=== PATIENT | male | born 1950 | race Caucasian/White ===

== ENCOUNTER 2018-02-13 16:50 | Emergency (ER) | payer MEDICARE, OTHER ==
[2018-02-13 17:09] VITALS: BP 128/81; O2SAT 94
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
[2018-02-13 19:51] VITALS: PULSE 78
--- NOTE | 2018-02-14 09:43 | XRAY ---
Indication: Cough. Comparison: None Portable chest demonstrates minimal left base fibrosis/scarring, left costophrenic angle pleural thickening/effusion, and left mid lung calcified granuloma. Remaining heart, lungs, and bony thorax unremarkable.
== END 2018-02-13 19:51 ==
LOC: ED 16:50
DX: J40 Bronchitis, not specified as acute or chronic (principal); R55 Syncope and collapse; Z79.899 Other long term (current) drug therapy; E11.9 Type 2 diabetes mellitus without complications; Z79.4 Long term (current) use of insulin; I10 Essential (primary) hypertension
CPT/HCPCS: 71045; 82962; 93005; 99284

== ENCOUNTER 2022-09-18 20:11 | Emergency (ER) | payer MEDICARE, OTHER ==
[2022-09-18 20:13] VITALS: TEMP 98.3; O2SAT 95
[2022-09-18] MEDS ORDERED: TORAdol 30 mg Injection IV ONE (20:50)
[2022-09-18] MEDS ORDERED: TORAdol 30 mg Injection ONE (20:53)
[2022-09-18 21:22] VITALS: BP 147/85; PULSE 67; RESP 16
--- NOTE | 2022-09-18 22:04 | ERPHSYRPT ---
- History of Present Illness Time Seen by Provider: 09/18/22 20:30 Source: patient Exam Limitations: no limitations Patient Subjective Stated Complaint: rt back pain x1 week, the pain got aggravated tonight when I tried to sit up on a high stool at [employer]. Triage Nursing Assessment: pt brought into ER via ambulance. Pt c/o rt lower back pain x1 week. Pt also has shooting pain that goes into rt upper buttock region. Pain was triggered tonight when he tried to get up on a high stool at [employer] for dinner. Physician History: Patient is a 72-year-old male with a history of chronic back pain, back surgery presents to our ED with acute on chronic back pain. Patient was sitting at a restaurant. Patient was on the tall barstool. Patient adjusted himself and in the process experience a severe pain just right to his sacrum. No trauma. No fever. No recent back procedure. No saddle anesthesia. No change in bowel bladder function. No lower extremity numbness tingling or weakness. Pain is localized but occasionally feels a shooting sensation into the mid buttock area. Patient denies any recent back procedures. No associated chest pain or shortness of breath. No nausea vomiting or diaphoresis. at bedside. They voiced no other complaints or concerns at this time. Portions of this note were created with voice recognition technology. There may be grammatical, spelling, punctuation or sound alike errors Timing/Duration: today Method of Injury: other (Sitting and twisting) Quality: dull, radiating (Occasionally radiates into his right buttock) Back Pain Location: lumbar spine Back Pain Radiation: buttocks Severity of Pain-Max: moderate Severity of Pain-Current: mild Modifying Factors: Improves With: movement (Movement and palpation reproduce pain.) Associated Symptoms: denies symptoms Previous symptoms: same symptoms as today Allergies/Adverse Reactions: No Known Drug Allergies Allergy (Verified 09/18/22 20:22) Home Medications: Gabapentin 300 mg TID 02/13/18 [History] Insulin Glargine,Hum.rec.anlog [Basaglar Kwikpen U-100] 20 mg BID 02/13/18 [History] Pravastatin Sodium 40 mg DAILY 02/13/18 [History] atenoloL [Atenolol] 100 mg DAILY 02/13/18 [History] glipiZIDE [Glipizide] 5 mg BID 02/13/18 [History] lisinopriL [Lisinopril] 5 mg PO DAILY 02/13/18 [History] Aspirin 81 mg PO DAILY 09/18/22 [History] Diclofenac Sodium 50 mg [Voltaren 50 mg] 1 tab PO BID 09/18/22 [History] Omeprazole 40 mg PO DAILY 09/18/22 [History] Sildenafil Citrate 100 mg PO DAILY PRN PRN 09/18/22 [History] Hx Tetanus, Diphtheria Vaccination/Date Given: Yes Hx Influenza Vaccination/Date Given: Yes Hx Pneumococcal Vaccination/Date Given: Yes Immunizations Up to Date: Yes Travel Risk - International Travel Have you traveled outside of the country in past 3 weeks: No - Coronavirus Screening Are you exhibiting any of the following symptoms?: No Close contact with a COVID-19 positive Pt in past 14-21 Days: No - Vaccine Status Have you recieved a Covid-19 vaccination: Yes Broadcast Checker: Unknown - Vaccination Dates Date of 2cond Vaccination (if applicable): . Dates if Unknown: . - Review of Systems Constitutional: No Symptoms, No Fever, No Chills Eyes: No Symptoms Ears, Nose, & Throat: No Symptoms Respiratory: No Symptoms, No Cough, No Dyspnea Cardiac: No Symptoms, No Chest Pain, No Edema, No Syncope Abdominal/Gastrointestinal: No Symptoms, No Abdominal Pain, No Nausea, No Vomiting, No Diarrhea Genitourinary Symptoms: No Symptoms, No Dysuria Musculoskeletal: No Symptoms, No Back Pain, No Neck Pain Skin: No Symptoms, No Rash Neurological: No Symptoms, No Dizziness, No Focal Weakness, No Sensory Changes Psychological: No Symptoms Endocrine: No Symptoms Hematologic/Lymphatic: No Symptoms Immunological/Allergic: No Symptoms All Other Systems: Reviewed and Negative - Past Medical History Pertinent Past Medical History: Yes Neurological History: No Pertinent History ENT History: No Pertinent History Cardiac History: High Cholesterol, Hypertension, Other Respiratory History: Bronchitis Endocrine Medical History: Diabetes Type II Musculoskeletal History: Degenerative Disk Disease, Fractures GI Medical History: Diverticulitis, GERD, Gallbladder Disease, Hernia Psycho-Social History: No Pertinent History Other Medical History: sinus infection 2018. heart murmur - Past Surgical History Past Surgical History: Yes Gastrointestinal: Cholecystectomy, Colon Resection, Hernia Repair Male Surgical History: Prostate Surgery Other Surgical History: carpal tunnel - Social History Smoking Status: Never smoker Exposure to second hand smoke: No Drug Use: none Patient Lives Alone: No - Nursing Vital Signs Nursing Vital Signs: Initial Vital Signs Temperature 98.3 F 09/18/22 20:12 Pulse Rate 69 09/18/22 20:12 Respiratory Rate 20 09/18/22 20:12 Blood Pressure 144/75 09/18/22 20:12 O2 Sat by Pulse Oximetry 95 09/18/22 20:12 Pain Scale Pain Intensity [Right Back] 4 Pain Intensity 0 - Physical Exam General Appearance: no apparent distress, alert Eye Exam: PERRL/EOMI, eyes nml inspection Ears, Nose, Throat Exam: normal ENT inspection Neck Exam: normal inspection, non-tender, supple, full range of motion, No meningismus, No midline tenderness Respiratory Exam: normal breath sounds, lungs clear, airway intact, No respiratory distress Cardiovascular Exam: regular rate/rhythm, normal heart sounds, normal peripheral pulses Gastrointestinal Exam: soft, other (No pulsatile abdominal masses.), No tenderness, No mass Extremity Exam: normal inspection, normal range of motion, other (Pain adjacent to right SI joint), No calf tenderness, No pedal edema Neurologic Exam: alert, oriented x 3, cooperative, material requirements planning manager II-XII nml as tested, normal mood/affect, nml station & gait, sensation nml, No motor deficits Skin Exam: normal color, warm, dry, No rash Lymphatic Exam: No adenopathy SpO2 Interpretation: normal SpO2: 95 O2 Delivery: Room Air - Course Nursing assessment & vital signs reviewed: Yes - CT Exams Lumbar Spine CT Interpretation: Tele-radiologist Report (No comps. L5-S1 fusion with extreme beam artifact limits exam. Remaining lumbar spine negative.) Ordered Tests: Active Orders 24 hr Category Date Time Status LUMBAR SPINE W/O [CT] Stat Exams 09/18/22 20:38 Taken Medication Summary Discontinued Medications Generic Name Dose Route Start Last Admin Trade Name Freq PRN Reason Stop Dose Admin Ketorolac Tromethamine 30 mg 09/18/22 20:50 09/18/22 20:56 Ketorolac Tromethamine 30 Mg/Ml Inj IV 09/18/22 20:51 30 mg STAT ONE Administration Ketorolac Tromethamine Confirm 09/18/22 20:53 Ketorolac Tromethamine 30 Mg/Ml Inj Administered 09/18/22 20:54 Dose 30 mg .ROUTE .STK-MED ONE - Progress Progress: improved Progress Note: Patient 72-year-old male presents to our ED with acute on chronic back pain. CT lumbar spine shows no acute pathology. Patient received Toradol IM for pain control. Pain resolved. Patient resting comfortably. Patient reassessed. Physical exam essentially nonremarkable. Patient states is ready for discharge. at bedside. They voiced no other complaints or concerns at this time. Portions of this note were created with voice recognition technology. There may be grammatical, spelling, punctuation or sound alike errors Complexity of problems addressed is moderate acute complicated. Patient experiencing back pain radiating to his right buttock. In light of patient's age it was unclear whether or not patient's pain was due to acute back pathology versus another etiology. CT scan of the lumbar spine help with differentiation of patient's complaint No critical care time Complex data reviewed and analyzed is moderate. CT scan ordered and reviewed. Clinical correlation between results and findings completed. Patient's pain responded to Toradol. Physical exam otherwise unremarkable. Risk of complication and a risk morbidity/mortality of patient management is moderate. A prescription for Toradol for to the patient's pharmacy. Patient be discharged home. Patient agrees to follow-up with his primary care doctor within 48 hours for reevaluation. Type in the discharge patient is approximately 15 minutes. Vital stable. Plan of care established for shared decision making. Patient states he was on his way to see his mother out of state. Patient decided to stay home instead. No social determinants of health presents impede follow-up. Patient and voiced no other complaints or concerns at this time. Portions of this note were created with voice recognition technology. There may be grammatical, spelling, punctuation or sound alike errors 09/18/22 22:05 09/18/22 22:08 Counseled pt/family regarding: diagnosis, need for follow-up, rad results - Departure Departure Disposition: Home Clinical Impression: Back pain Condition: Stable Critical Care Time: No Referrals: [facility] [Primary Care Provider] - Follow up/PCP as directed Additional Instructions: Discharge/Care Plan ABBE JOY was seen on 09/18/22 in the Emergency Room. The patient was counseled regarding Diagnosis,Lab results, Imaging studies, need for follow up and when to return to the Emergency Room. Prescriptions given: Discharge Note I have spoken with the patient and/or caregivers. I have explained the patient's condition, diagnosis and treatment plan based on the information available to me at this time. I have answered the patient's and/or caregiver's questions and addressed any concerns. The patient and/or caregivers have as good understanding of the patient's diagnosis, condition and treatment plan as can be expected at this point. The vital signs have been stable. The patient's condition is stable and appropriate for discharge from the emergency department. The patient will pursue further outpatient evaluation with the primary care physician or other designated or consulting physician as outlined in the discharge instructions. The patient and/or caregivers are agreeable to this plan of care and follow-up instructions have been explained in detail. The patient and/or caregivers have received these instruction. The patient/and or caregivers are aware that any significant change in condition or worsening of symptoms should prompt an immediate return to this or the closest emergency department or call 911. Prescriptions: Ketorolac Trometh 10 mg Tab [TORAdol 10 MG TABLET] 10 mg PO TID 5 Days #15 tablet
--- NOTE | 2022-09-19 08:50 | XRAY ---
Indication: Low back pain. Multiple contiguous axial images obtained through the lumbar spine. Sagittal and coronal reformatted images obtained. Comparison: None There has been L5-S1 fusion surgery with extreme beam artifact from bilateral pedicle screws, hooks, spinal rods, and intervertebral spacers. No gross acute fracture, large disc herniation, or spinal canal stenosis. Minimal multilevel anterior endplate spurring greatest at L1-L2. Both SI joints demonstrate degenerative vacuum phenomena. 9 mm bone cyst left innominate bone adjacent to SI joint. Sagittal and coronal reformatted images demonstrates normal lumbar alignment and L5-S1 disc space narrowing. No acute compression fracture or subluxation. Visualized noncontrasted soft tissues demonstrates intact sigmoid anastomosis. Impression: 1. Beam artifact from L5-S1 fusion hardware. 2. Degenerative endplate spurring, bilateral SI joint degenerative vacuum phenomena, and tiny left innominate bone cyst.
== END 2022-09-18 22:07 | disposition home or self-care (01) ==
LOC: ED 20:11
DX: M54.50 Low back pain, unspecified (principal); E78.5 Hyperlipidemia, unspecified; I10 Essential (primary) hypertension; E11.9 Type 2 diabetes mellitus without complications; Z79.4 Long term (current) use of insulin; Z79.84 Long term (current) use of oral hypoglycemic drugs; Z79.899 Other long term (current) drug therapy
CPT/HCPCS: 36000; 72131; 96374; 99284; J1885